=== PATIENT | male | born 1990 | race African-American/Black ===

== ENCOUNTER 2016-11-24 21:37 | Emergency (ER) | payer OTHER ==
[~2016-11-24] VITALS: Ht 185.4 cm; Wt 97.1 kg
[~2016-11-24 21:37] MED LIST: BACTRIM DS TABL1 TA1 PO
== END 2016-11-25 00:51 | disposition home or self-care (01) ==
LOC: CED 21:37 → CFTX 21:37
DX: S39.012A Strain of muscle, fascia and tendon of lower back, initial encounter (principal); F17.210 Nicotine dependence, cigarettes, uncomplicated; X50.0XXA Overexertion from strenuous movement or load, initial encounter
CPT/HCPCS: 96372; 99283; J1885; J3360